=== PATIENT | female | born 1970 | race African-American/Black ===

== ENCOUNTER 2019-11-14 09:19 | Day surgery (SDC) | payer OTHER ==
[~2019-11-14] VITALS: Ht 170.2 cm; Wt 96.2 kg
[2019-11-14] MEDS ORDERED: LIDOCAINE 2% 100 MG/5 ML UJET TP ONE (11:15)
[2019-11-14] MEDS ORDERED: MIDAZOLAM 2 MG/2 ML VIAL ONE (11:15)
[2019-11-14] MEDS ORDERED: fentaNYL 0.05 MG/ML VIAL ONE (11:15)
== END 2019-11-14 13:15 | disposition home or self-care (01) ==
LOC: MDS 09:19 → MMU 10:22 → MDS 13:15
PROVIDERS: ATTEND Internal Medicine Gastroenterology
DX: K62.5 Hemorrhage of anus and rectum (principal); K52.9 Noninfective gastroenteritis and colitis, unspecified; J45.909 Unspecified asthma, uncomplicated; E66.9 Obesity, unspecified; Z68.35 Body mass index [BMI] 35.0-35.9, adult; Z72.89 Other problems related to lifestyle; F17.210 Nicotine dependence, cigarettes, uncomplicated; Z90.710 Acquired absence of both cervix and uterus; Z98.890 Other specified postprocedural states
CPT/HCPCS: 45380; 88305; J2250; J3010; J7030